=== PATIENT | female | born 1990 | race Caucasian/White ===

== ENCOUNTER 2021-03-01 12:17 | Outpatient (CLI) | payer BC | END 2021-03-01 12:18 | disposition home or self-care (01) | LOC: MRI 12:17 | PROVIDERS: ATTEND Family Medicine | DX: R51.9 Headache, unspecified (principal) | CPT/HCPCS: 70551 ==

== ENCOUNTER 2022-04-06 09:06 | Outpatient (CLI) | payer BC | END 2022-04-06 09:07 | disposition home or self-care (01) | LOC: SCSMRI 09:06 | PROVIDERS: ATTEND Family Medicine | DX: R59.0 Localized enlarged lymph nodes (principal) | CPT/HCPCS: 72141 ==

== ENCOUNTER 2022-05-07 09:28 | Outpatient (CLI) | payer BC | END 2022-05-07 09:29 | disposition home or self-care (01) | LOC: TBSIIMAG 09:28 | PROVIDERS: ATTEND Neurological Surgery | DX: G56.20 Lesion of ulnar nerve, unspecified upper limb (principal) | CPT/HCPCS: 72120 ==